=== PATIENT | male | born 1960 | race Caucasian/White ===

== ENCOUNTER → 2019-04-30 13:52 | Outpatient (CLI) | payer OTHER, SELFPAY | PROVIDERS: Family Provider Family Medicine; PCP Family Medicine; Visit Provider Family Medicine | DX: I10 Essential (primary) hypertension (principal); Z12.5 Encounter for screening for malignant neoplasm of prostate; Z80.42 Family history of malignant neoplasm of prostate | CPT/HCPCS: 36415 ==

== ENCOUNTER → 2019-06-08 16:36 | Outpatient (CLI) | payer OTHER, SELFPAY ==
--- NOTE | 2019-06-08 | IMM_PTH ---
PATIENT: ANGLE OCONNELL LOC: [facility] U#:[id number] AGE/SX: 64/M ROOM: RE06/08/[address]: Dr. Manny Cavazos MD : 1960 BED: DIS: SPEC #: [id number] RECD: 06/10/19 11:41 STATUS: REMIGIO REQ #: [id number] JEFRY: 06/08/19 00:[address]: Manny Cavazos DEPT: IMMUNOHISTOCHEMISTRY RECD BY: Shweta Mayorga ENTERED: 06/10/19 11:41 SP TYPE: IMMUNO OTHR DR: Dr. Shan Fernandez MD Tissues: F - PROSTATE LEFT Procedures: P40 (add) 34BE12 (initial) PHYSICIAN & INSTITUTION [place] [address] SPECIMEN INFORMATION: Tissue Source: F - Left prostate, base, core biopsy Clinical Info: Elevated PSA Specimen Number: [id number] CPT code: 85035, 43061 METHODOLOGY: Deparaffinized sections of prefer/formalin-fixed tissue or PAP/DQ stained slides are incubated with monoclonal/polyclonal antibodies/oligonucleotide probes. Localization is made via biotin free immunoperoxidase method. Appropriate controls are performed and reacted as expected. Results on target cell population are indicated in the following table: RESULTS: ANTIBODY / CLONE RESULT Block F 34BE12 (34BE12) negative P40 (BC28) negative These tests were developed and their performance characteristics determined by [facility]. They may not have been cleared or approved by the U.S. Food and Drug Administration. The FDA has determined that such clearance or approval is not necessary. INTERPRETATION: F. Left prostate, base, core biopsy: Adenocarcinoma. SJ:laya 06/11/19
--- NOTE | 2019-06-08 08:00 | PROSBIL_PTH ---
PATIENT: ANGLE OCONNELL LOC: [facility] U#:[id number] AGE/SX: 64/M ROOM: RE06/08/[address]: Dr. Manny Cavazos MD : 1960 BED: DIS: SPEC #: [id number] RECD: 06/08/19 16:16 STATUS: REMIGIO NAILA #: [id number] JEFRY: 06/08/19 08:[address]: Manny Cavazos DEPT: SURGICAL PATHOLOGY RECD BY: Nico Flanagan ENTERED: 06/09/19 10:03 SP TYPE: PROST BX GHASSAN DR: Dr. Shan Fernandez MD Tissues: A - PROSTATE RIGHT B - PROSTATE RIGHT C - PROSTATE RIGHT D - PROSTATE LEFT E - PROSTATE LEFT F - PROSTATE LEFT Procedures: PROSTATE BX HEADER OPERATION: Prostate biopsy PRE-OP DIAGNOSIS: Elevated PSA TISSUE SUBMITTED: A - Right apex, B - Right mid, C - Right base, D - Left apex, E - Left mid, F - Left base MICROSCOPIC DIAGNOSIS A. Right prostate, apex, core biopsy: Prostatic tissue, negative for malignancy. Focal mild chronic inflammation. B. Right prostate, mid, core biopsy: Prostatic tissue, negative for malignancy. Focal atrophy. C. Right prostate, base, core biopsy: Prostatic tissue, negative for malignancy. D. Left prostate, apex, core biopsy: Prostatic tissue, negative for malignancy. E. Left prostate, mid, core biopsy: Focal high-grade prostatic intraepithelial neoplasia (HGPIN). Focal mild chronic inflammation. F. Left prostate, base, core biopsy: Prostatic adenocarcinoma: [place] grade: 3+3=6 Number of cores involved: 1 of 2 Proportion of tissue involved: ~5% Perineural invasion: Not identified. Greatest tumor length: 0.1 cm See comment. SJ:rg 06/10/19 COMMENT F. Immunohistochemistry ([id number]) supports the above diagnosis. Case has been reviewed in consultation with Dr. Myrick who concurs with the above diagnosis. IDC:AM MICROSCOPIC DESCRIPTION Slides are reviewed. GROSS DESCRIPTION A - Received is one container designated prostate, right apex. The specimen consists of two elongated fragments of light mantilla-white soft tissue each measuring 0.8 cm in length and 0.1 cm in diameter. The specimen is totally submitted in one cassette. B - Received is one container designated prostate, right mid. The specimen consists of two elongated fragments of light mantilla-white soft tissue each measuring 1 cm in length and 0.1 cm in diameter. The specimen is totally submitted in one cassette. C - Received is one container designated prostate, right base. The specimen consists of two elongated fragments of light mantilla-white soft tissue each measuring 0.8 cm in length and 0.1 cm in diameter. The specimen is totally submitted in one cassette. D - Received is one container designated prostate, left apex. The specimen consists of two elongated fragments of light mantilla-white soft tissue each measuring 1 cm in length and 0.1 cm in diameter. The specimen is totally submitted in one cassette. E - Received is one container designated prostate, left mid. The specimen consists of two elongated fragments of light mantilla-white soft tissue each measuring 1 cm in length and 0.1 cm in diameter. The specimen is totally submitted in one cassette. F - Received is one container designated prostate, left base. The specimen consists of two elongated fragments of light mantilla-white soft tissue each measuring 0.8 cm in length and 0.1 cm in diameter. The specimen is totally submitted in one cassette. / AM:rg 06/09/19 TC:0 CPT: 15433 x6
== END ==
PROVIDERS: Family Provider Family Medicine; PCP Family Medicine; Referring Provider Urology; Visit Provider Urology
DX: R97.20 Elevated prostate specific antigen [PSA] (principal)
CPT/HCPCS: 88305; 88341; 88342; G0416

== ENCOUNTER 2019-07-28 05:44 | Day surgery (SDC) | payer OTHER, SELFPAY ==
[2019-07-20 10:26] VITALS: BP 125/99; PULSE 99; RESP 16; TEMP 37.3; O2SAT 96; BMI 25.6
--- NOTE | 2019-07-20 11:06 | SDCEKG_ITS ---
Test Reason : Blood Pressure : / mmHG Vent. Rate : 087 BPM Atrial Rate : 087 BPM P-R Int : 160 ms QRS Dur : 094 ms QT Int : 350 ms P-R-T Axes : 095 061 032 degrees QTc Int : 421 ms Normal sinus rhythm Normal ECG Confirmed by GARCIA JASMINE, RADHA ([id number]), food editor BERNARDINO GRERE ([id number]) on 07/26/2019 9:39:34 AM Referred By: Manny Cavazos Confirmed By:RADHA ZELAYA MD
[2019-07-23 13:50] LABS: ALB/GLOB Ratio 1.1 RATIO (0.9-2.4); AST(SGOT) 27 U/L (15-37); Alanine Aminotransfer ALT/SGPT 29 U/L (16-61); Albumin, Serum 3.8 g/dL (3.2-5.0); Alkaline Phosphatase 87 U/L (45-117); Anion Gap 6 (5-15); BUN 18 mg/dL (7-18); BUN/Creat Ratio 20.3 RATIO (10-20); Calcium,Total 8.8 mg/dL (8.5-10.1); Chloride 107 mmol/L (98-107); Creatinine, Serum 0.89 mg/dL (0.70-1.30); EST Glomerular Filtration Rate 93 mL/min (>60); Est Glom Filt Rate - Afr Amer 113 mL/min (>60); Estimated Creatinine Clearance 102.24 ml/min; Globulin 3.4 g/dL (2.2-4.2); Glucose 103 mg/dL (74-106); Protein, Total 7.2 g/dL (6.4-8.2); Sodium Level 142 mmol/L (136-145)
[2019-07-23 13:52] LABS: Hematocrit 46.8 % (40-54); Hemoglobin 15.4 g/dL (13.0-16.5); Mean Corp Hgb Conc 32.9 g/dL (32-36); Mean Corpuscular Hgb 29.2 pg (27.0-32.0); Mean Corpuscular Volume 88.8 fL (80-94); Mean Platelet Vol. 9.6 fl (6.2-12.0); Platelet Count 292 K/mm3 (150-450); RBC Distribution Width CV 12.4 % (11.6-14.6); RBC Distribution Width SD 40.8 fl (35.1-43.9); Red Blood Count 5.27 M/mm3 (4.6-6.2); White Blood Count 9.1 K/mm3 (4.4-11.0)
[2019-07-28] VITALS (12 sets, daily range): BP systolic 95–132; BP diastolic 60–91; PULSE 59–81; RESP 14–18; TEMP 36.4–37.2; O2SAT 91–100; BMI 25.6; BMI 25.7
--- NOTE | 2019-07-28 | IMM_PTH ---
PATIENT: ANGLE OCONNELL LOC: [facility] [place] [facility] [place][id number] AGE/SX: 58/M ROOM: RE07/28/[address]: Dr. Manny Cavazos MD : 1960 BED: DIS: 07/29/2019 SPEC #: [id number] RECD: 07/30/19 13:18 STATUS: REMIGIO REQ #: [id number] JEFRY: 07/28/19 00:[address]: Manny Cavazos DEPT: IMMUNOHISTOCHEMISTRY RECD BY: Shweta Mayorga ENTERED: 07/30/19 13:18 SP TYPE: IMMUNO OTHR DR: Dr. Shan Fernandez MD Tissues: C - Prostate, NOS Procedures: P40 (add) 34BE12 (initial) PHYSICIAN & INSTITUTION [place] [address] SPECIMEN INFORMATION: Tissue Source: C - Prostate, radical prostatectomy Clinical Info: Elevated PSA, malignant neoplasm Specimen Number: [id number] CPT code: 44140, 20461 METHODOLOGY: Deparaffinized sections of prefer/formalin-fixed tissue or PAP/DQ stained slides are incubated with monoclonal/polyclonal antibodies/oligonucleotide probes. Localization is made via biotin free immunoperoxidase method. Appropriate controls are performed and reacted as expected. Results on target cell population are indicated in the following table: RESULTS: ANTIBODY / CLONE RESULT Block C7 P40 (BC28) negative 34BE12 (34BE12) negative These tests were developed and their performance characteristics determined by [facility]. They may not have been cleared or approved by the U.S. Food and Drug Administration. The FDA has determined that such clearance or approval is not necessary. The above immunohistochemical/dualISH markers are ordered and reviewed by the Pathologist. INTERPRETATION: Theo Prostate, radical prostatectomy: Adenocarcinoma. ELI:laya 08/02/19
[2019-07-28] MEDS: Lactated Ringers 1,000 ML 100 ML IV ×3 (06:27→06:30)
[2019-07-28] MEDS: Cefazolin 2 GM in 0.9% Normal Saline 100 ML IV (07:29)
--- NOTE | 2019-07-28 07:30 | PROST_PTH ---
PATIENT: ANGLE OCONNELL LOC: [facility] [place] [facility] [place] U#:[id number] AGE/SX: 58/M ROOM: RE07/28/[address]: Dr. Manny Cavazos MD : 1960 BED: DIS: 07/29/2019 SPEC #: [id number] RECD: 07/28/19 16:05 STATUS: REMIGIO NAILA #: [id number] JEFRY: 07/28/19 07:[address]: Manny Cavazos DEPT: SURGICAL PATHOLOGY RECD BY: Jeffery Mckeon ENTERED: 07/29/19 07:59 SP TYPE: PROSTATE OTHR DR: Dr. Shan Fernandez MD Tissues: A - Lymph node, NOS B - Lymph node, NOS C - Prostate, NOS D - Prostate, NOS Procedures: Surgery Specimen Level IV Surgery Specimen Level V Surgery Specimen Level HEADER OPERATION: Lap robotic radical prostatectomy, lymph node dissection PRE-OP DIAGNOSIS: Elevated PSA, malignant neoplasm TISSUE SUBMITTED: A - Right pelvic lymph node, B - Left pelvic lymph node, C - Prostate, D - Fat over prostate MICROSCOPIC DIAGNOSIS A. Right pelvic lymph node, biopsy: Two out of two lymph nodes, negative for metastatic carcinoma. B. Left pelvic lymph node, biopsy: One lymph node, negative for metastatic carcinoma. C. Prostate, radical prostatectomy: Prostatic adenocarcinoma. See cancer summary below. D. Fat over prostate: One lymph node, negative for metastatic carcinoma. Adipose tissue, negative for carcinoma. SJ:laya 07/30/19 PROSTATE CANCER (RADICAL) SUMMARY: Procedure - radical prostatectomy Prostate size - 4 cm craniocaudally, 4.5 cm anterior-posteriorly and 4.6 cm transversely Prostate weight - 48 gm Lymph node sampling - pelvic lymph node dissection Histologic type - adenocarcinoma (acinar, not otherwise specified) Histologic grade (Ryan Pattern): Primary pattern - 3 Secondary pattern - 4 Tertiary pattern - not identified Total Ryan score - 7 Tumor Quantitation: Proportion (%) of prostate involved by tumor - <5% Tumor size - see comment Extraprostatic extension - not identified Seminal vesicle invasion - not identified Margins - The tumor is present focally at the apical margin. Treatment effect on carcinoma - no known presurgical therapy Lymph-Vascular invasion - not identified Perineural invasion - present, focal Regional lymph nodes: Number examined - 4 Number involved - 0 Distant metastasis - not applicable Additional pathologic findings - benign prostatic hyperplasia, glandular and stromal type. - Acute and chronic inflammation. - Focal high-grade prostatic intraepithelial neoplasia (HGPIN). PATHOLOGIC STAGE: pT2c pN0 Mx The above summary is in compliance with [employer] (CAP) Cancer Protocols Checklist and [place] Joint Committee on Cancer (AJCC), Staging Manual, 8th Ed. COMMENT C. Immunohistochemistry ([id number]) supports the above diagnosis. The tumor in the left lobe measures 0.5 x 0.3 cm, measured microscopically (involves slides 1, 6 & 8). The tumor in the right lobe measures 0.5 x 0.3 cm, measured microscopically (present in slides 7, 9 &?15). Please make reference to previous specimen ([id number]) left prostate, base, core biopsy with diagnosis of prostatic adenocarcinoma. Case has been reviewed in consultation with Dr. Myrick who concurs with the above diagnosis. IDC:AM MICROSCOPIC DESCRIPTION Slides are reviewed. GROSS DESCRIPTION A - Received in fixative is one container labeled with the patient's name and designated right pelvic lymph node. The specimen consists of an irregular fragment of mantilla-yellow fibrofatty tissue measuring 2.5 x 2 x 1 cm. Dissection reveals two mantilla nodules ranging in size from 1 to 1.7 cm in greatest dimension. The nodules are submitted in their entirety in one cassette. B - Received in fixative is one container labeled with the patient's name and designated left pelvic lymph node. The specimen consists of an irregular fragment of mantilla-yellow fibrofatty tissue measuring 3.5 x 1.5 x 1 cm. Dissection reveals a single mantilla nodule measuring 2 x 0.7 x 0.5 cm. This nodule is bisected and submitted in its entirety in one cassette. C - Received in fixative is one container labeled with the patient's name and designated prostate. The specimen consists of a prostate including seminal vesicles and vas deferens. The prostate measures 4.6 cm transversely, 4 cm craniocaudally and 4.5 cm anterior-posteriorly. On palpation, no gross nodules are identified. The gland weighs 48 gm. The specimen is differentially inked as follows: anterior - red, posterior - black, right half - blue and left half - green. The gland is cut from apex of gland to base of gland at approximately 4-5 mm sections. Serial sections do not reveal distinct mass lesions. Car Record Clerk sections are submitted in 20 cassettes as follows: 1 - apical shaved margin (distal urethral margin), 2 - proximal margin (bladder shave), 3 - right and left seminal vesicle, 4 - most basal section of prostate, 5-8 - apex of gland, 9-14 - mid portion of gland, 15-20 - basal portion of gland. D - Received in fixative is one container labeled with the patient's name and designated fat over prostate. The specimen consists of an irregular fragment of yellow fatty tissue measuring 4.5 x 3 x 1 cm. Sections do not reveal nodularities or mass lesions. Car Record Clerk sections are submitted in one cassette. / AM:laya 07/29/19 TC:0 CPT: 32374, 26106, 26672 x2
--- NOTE | 2019-07-28 07:35 | PCM.DC ---
- Discharge Diagnoses Current Active Problems: Prostate Cancer Reason(s) for Visit for Discharge Instructions: Robotic Prostatectomy You will use the following diet at home:: Regular, Clear liquid Your food should be the consistency of: Regular Discharge Activity: May not drive while taking narcotic pain medications., May Shower Return to work on:: 09/01/19 Call your doctor if your incision/area has: Continuous Slow Oozing, Sudden Increased Bleeding, Increased Pain/ Swelling, Increased Redness, Foul Smelling Discharge, Swelling at the incision site Call your doctor if you observe: Fever of 101 or Higher, Inability to have a bowel movement, Uncontrolled pain Suture Line Care: Avoid Pulling/Pushing, Avoid Pinching/Bending Catheter: Olivera to leg bag, Olivera to large bag Drain: [place] Instructions: Radical Prostatectomy Allergies/Adverse Reactions: Allergies No Known Allergies Allergy (Verified 07/20/19 10:22) Medications to take at Discharge Aspirin E.C. [Ecotrin] 81 mg PO DAILY@0800 07/20/19 Lisinopril/Hydrochlorothiazide [Lisinopril-Hctz 20-12.5 mg Tab] 1 ea PO DAILY 07/20/19 Ciprofloxacin [Cipro] 500 mg PO BID #20 tab 07/28/19 Docusate Sodium [Colace] 100 mg PO BID #20 cap 07/28/19 Hydrocodone/Acetaminophen [[place] 5-325 Tablet] 1 ea PO Q4H PRN PRN 5 Days #14 tab 07/28/19 The following prescriptions were given: Ciprofloxacin [Cipro] 500 mg PO BID #20 tab Prescription Printed Docusate Sodium [Colace] 100 mg PO BID #20 cap Prescription Printed Hydrocodone/Acetaminophen [[place] 5-325 Tablet] 1 ea PO Q4H PRN PRN 5 Days #14 tab PRN Reason: Pain Score 1-10/10 Prescription Printed Primary Care Physician: Shan Fernandez MD [Primary Care Provider] - Test Results: Test results from this visit will be discussed in further detail at your follow-up appointment, if applicable. Please Follow Up With: Manny Cavazos MD When: Call for an appt in 10 days Proposed Discharge Date: 07/29/19
[2019-07-28] MEDS: Bupivacaine Mpf 0.5% 30 ML VIAL (11:00)
--- NOTE | 2019-07-28 11:09 | OP.PCM_ITS ---
Report of Operation Date of Procedure: 07/28/19 Pre-Operative Diagnosis: Prostate cancer Post-Operative Diagnosis: Same Surgery/Procedure Performed:: Laparoscopic robotic assisted radical prostatectomy with bilateral nerve sparing and bilateral lymph node dissection Description of Surgical Findings:: 58-year-old male taken back to the operating room after smooth induction of anesthesia he was placed supine on the table, the abdomen shaved prepped and draped in usual sterile fashion, made a midline incision in the umbilicus dissected through the skin layer and then used a Veress needle to enter the peritoneal cavity insufflated the peritoneal cavity CO2 gas docked the camera port right and left arm port and fourth arm port and placed the suction port and the residential real estate assistant suction port. We then docked the robot and proceeded the dissection I first identified the posterior aspect of the bladder and the prostate seminal vesicles opened up the peritoneum over the seminal vesicles and vas deferens dissected out the seminal vesicles and vas deferens without using any electrocautery just bipolar minimal amount I then went underneath the prostate identified the non-BAs fascia was able to sweep tenotomies fascia off the bottom of the prostate all the way to the apex. I then pulled out of the pelvis drop the bladder created the space of Retzius pulled the bladder on traction. We then went to the lymph nodes on the right lateral wall dissected the lymph nodes of the right lateral wall the operators first the hand router operator nerve was identified. We used the clips to ligate all the blood vessels as we remove the lymph nodes in the right obturator space. We then went to the left side identified the anatomy remove the lymph nodes in the left side and the hand router operator space. After the lymph nodes were sent off then incised the endopelvic fascia in the right and left side of the prostate, incised the puboprostatic ligaments, placed a stitch in the dorsal vein, I then pulled back to the junction between the bladder and prostate and dissected down between the bladder and prostate dissecting the bladder off the prostate encountered a very large protruding BPH lobes protruding into the bladder made this dissection a little more difficult had a dissect around these eventually identified the right and left ureteral orifice and then dissected the BPH protruding to the tissue off the prostate and bladder and then got posteriorly and then dissected posteriorly to separate the bladder from the prostate in the posterior fashion down to got down to the vas deferens and seminal vesicles. We then went to the right side to put traction t he prostate I then incised the endopelvic fascia in the right side of the prostate freeing up the neurovascular bundle this was freed up and stayed right on the capsule of the prostate and freed up the bundle all the way off the capsule prostate coming back to the pedicle the pedicles then taken with clips and then I went underneath the prostate and freed up the neurovascular bundle on the right side all the way to the apex this is a complete perfect nerve sparing on the right side. Then went to the left side incised the endopelvic fascia over the proximal to the left side and then freed up the nerve bundle on the left side sweeping off the prostate came back to the pedicle of the left side and then swept off the neurovascular bundle in the left side all the way to the apex again this came off very nicely with no damage to the neurovascular bundles identified. I then transected through the dorsal vein complex there is no bleeding I then transected through the urethra had a nice long stump. We then the access remove the prostate put an Endo Catch bag. I then performed the anastomosis between the urethral stump and the bladder. This was done over catheter after the anastomosis completed we then flushed and filled the bladder up there was no leakage of the perfect anastomosis we then filled the balloon with 10 cc pulled back to the bladder neck irrigated catheter there was no leakage we then undocked the robot extracted the prostate to the supraumbilical incision and closed the air seal port with a Sal Soto stitch all the subtalar stitches were closed with stitches and the patient's anesthetic is currently being reversed it was a very nice dissection entire prostate was removed and no violation identified and good nerve sparing in both right and left side. Type of Anesthesia:: General Drains: barraza 20 fr - Admit VTE Documentation VTE Present on Admission: No VTE Mechan Device Prophylaxis: SCD's
[2019-07-28] MEDS: Ketorolac 15 MG/ML Vial IV ×2 (13:27→18:01)
[2019-07-28] MEDS: 0.9% Saline Lock 10 ML Syringe IV (18:01)
[2019-07-28] MEDS: Ciprofloxacin 500 MG Tablet PO (21:26)
[2019-07-28] MEDS: Docusate Sodium 100 MG Capsule PO (21:26)
[2019-07-29] MEDS: Ketorolac 15 MG/ML Vial IV ×2 (00:05→06:36)
[2019-07-29] MEDS: 0.9% Saline Lock 10 ML Syringe IV (00:05)
[2019-07-29 02:46] VITALS: BP 111/69; PULSE 80; RESP 18; TEMP 37.2; O2SAT 95
[2019-07-29] MEDS: Enoxaparin 40 MG/0.4 ML Syringe SC (06:35)
[2019-07-29 07:07] LABS: Hemoglobin 12.7 g/dL (13.0-16.5); Mean Corp Hgb Conc 33.4 g/dL (32-36); Mean Corpuscular Hgb 29.2 pg (27.0-32.0); Mean Corpuscular Volume 87.4 fL (80-94); Platelet Count 229 K/mm3 (150-450); RBC Distribution Width SD 38.7 fl (35.1-43.9); Red Blood Count 4.35 M/mm3 (4.6-6.2); White Blood Count 11.2 K/mm3 (4.4-11.0)
[2019-07-29 07:21] LABS: Anion Gap 8 (5-15); BUN 13 mg/dL (7-18); BUN/Creat Ratio 13.7 RATIO (10-20); Calcium,Total 7.8 mg/dL (8.5-10.1); Chloride 100 mmol/L (98-107); Creatinine, Serum 0.95 mg/dL (0.70-1.30); EST Glomerular Filtration Rate 87 mL/min (>60); Est Glom Filt Rate - Afr Amer 105 mL/min (>60); Estimated Creatinine Clearance 93.03 ml/min; Glucose 115 mg/dL (74-106); Potassium 3.6 mmol/L (3.5-5.1); Sodium Level 136 mmol/L (136-145)
[2019-07-29 07:32] VITALS: BP 122/78; PULSE 82; RESP 18; TEMP 37.1; O2SAT 99
--- NOTE | 2019-07-29 07:47 | PCM.PN.BLA ---
Progress Note Postoperative day #1 status post radical prostatectomy patient is doing well plan to send him home today with a catheter. Abdomen soft and benign incisions are clean and the urine is nice and clear STROKE Vital Signs/Narrative: Vital Signs Temp Pulse Resp BP Pulse Ox 07/29/19 07:32 98.7 F 82 18 122/78 H 99
== END 2019-07-29 09:26 | disposition home or self-care (01) ==
LOC: SDC 05:51 → AC 05:51 → MS2 07-29 01:26
PROVIDERS: Family Provider Family Medicine; PCP Family Medicine; Referring Provider Urology; Visit Provider Urology
PROC: 0VT04ZZ Resection of Prostate, Percutaneous Endoscopic Approach (ICD-10-PCS; CPT 55866; principal; 2019-07-28 07:10)
DX: C61 Malignant neoplasm of prostate (principal); R97.20 Elevated prostate specific antigen [PSA]; I10 Essential (primary) hypertension; Z79.82 Long term (current) use of aspirin; Z79.899 Other long term (current) drug therapy; Z80.42 Family history of malignant neoplasm of prostate
CPT/HCPCS: 38571; 55866; 36415; 80048; 80053; 85027; 86850; 86900; 86901; 88305; 88307; 88309; 88341; 88342; 93005; 99251; J7120; A4216; G0463; J2405

== ENCOUNTER → 2019-09-23 13:23 | Outpatient (CLI) | payer OTHER, SELFPAY ==
[2019-07-28 12:52] VITALS: BMI 25.7
[2019-09-23 14:14] LABS: PSA,Total- Diagnostic < 0.01 ng/mL (0.0-4.0)
== END ==
PROVIDERS: Family Provider Family Medicine; PCP Family Medicine; Referring Provider Urology; Visit Provider Urology
DX: C61 Malignant neoplasm of prostate (principal)
CPT/HCPCS: 36415; 84153

== ENCOUNTER → 2020-01-20 09:01 | Outpatient (CLI) | payer OTHER, SELFPAY ==
[2019-07-28 12:52] VITALS: BMI 25.7
[2020-01-20 09:52] LABS: PSA,Total- Diagnostic < 0.01 ng/mL (0.0-4.0)
== END ==
PROVIDERS: PCP Family Medicine; Referring Provider Urology; Visit Provider Urology
DX: C61 Malignant neoplasm of prostate (principal)
CPT/HCPCS: 36415; 84153

== ENCOUNTER → 2020-10-18 14:13 | Outpatient (CLI) | payer SELFPAY ==
[2019-07-28 12:52] VITALS: BMI 25.7
--- NOTE | 2020-10-18 14:19 | CT_ITS ---
STUDY: CT MAXILLOFACIAL SINUSES REASON FOR EXAM: Male, 60 years old. SINUSITIS RADIATION DOSAGE (If Supplied By Facility): CTDIvol = ( 33.45 ) mGy, DLP = ( 834.91 ) mGycm TECHNIQUE: The patient was scanned in a multi detector CT scanner. High resolution axial imaging was performed without the administration of intravenous contrast material. Sagittal and coronal images were reconstructed. Individualized dose optimization techniques were used for this CT. COMPARISON: None. FINDINGS: FRONTAL SINUSES: Partial opacification of the left sphenoid sinus. ETHMOIDAL SINUSES: There is soft tissue density and opacification of the ethmoid sinuses bilaterally worse on the left side. There is thinning of the medial wall of the left maxillary sinus. The nasal fossa is filled with soft tissue density on the left side suggestive of polyposis. MAXILLARY SINUSES: There is also opacification of the left maxillary sinus. There is obliteration of the left maxillary infundibulum. Mucosal thickening of the right maxillary sinus. SPHENOIDAL SINUSES: Mucosal thickening of the sphenoid sinus worse on the left side. The visualized bilateral orbital contents are normal. CT/Sinus/Facial Bone IMPRESSION: BARAJAS sinusitis. This is worse on the left side. Electronically Signed: Irvin Martinez MD at 14:49 EST , Service support ,
== END ==
PROVIDERS: PCP Family Medicine; Referring Provider Otolaryngology; Visit Provider Otolaryngology
DX: J32.8 Other chronic sinusitis (principal)
CPT/HCPCS: 70486

== ENCOUNTER → 2020-11-15 14:05 | Outpatient (CLI) | payer OTHER, SELFPAY ==
[2019-07-28 12:52] VITALS: BMI 25.7
== END ==
PROVIDERS: PCP Family Medicine; Referring Provider Otolaryngology; Visit Provider Otolaryngology
DX: Z11.59 Encounter for screening for other viral diseases (principal)
CPT/HCPCS: 87635; C9803; U0005; U0003

== ENCOUNTER 2021-11-05 11:33 | Outpatient (CLI) | payer OTHER, SELFPAY ==
[2021-11-05 15:42] LABS: PSA,Total- Diagnostic < 0.01 ng/mL (0.0-4.0)
== END 2021-11-05 23:59 | disposition home or self-care (01) ==
PROVIDERS: PCP Family Medicine; Referring Provider Family Medicine; Visit Provider Family Medicine
DX: C61 Malignant neoplasm of prostate (principal)
CPT/HCPCS: 36415; 84153

== ENCOUNTER 2022-07-03 10:46 | Day surgery (SDC) | payer OTHER, SELFPAY ==
--- NOTE | 2022-07-03 | EGD_PTH ---
PATIENT: ANGLE OCONNELL LOC: [facility] U#:[id number] AGE/SX: 61/M ROOM: RE07/03/[address]: Dr. Juan Mason MD : 1960 BED: DIS: 07/03/2022 SPEC #: [id number] RECD: 07/03/22 13:27 STATUS: REMIGIO OLVERALelo #: [id number] JEFRY: 07/03/22 00:[address]: Juan Mason DEPT: SURGICAL PATHOLOGY RECD BY: Collin Hankins ENTERED: 07/03/22 13:28 SP TYPE: EGD BIOPSY OT DR: Dr. Shan Fernandez MD Tissues: Esophageal mucous membrane Procedures: Surgery Specimen Level IV HEADER OPERATION: EGD ([facility] [place] biopsy PRE-OP DIAGNOSIS: Dysphagia, rule out eosinophilic esophagitis TISSUE SUBMITTED: Mid esophagus biopsy MICROSCOPIC DIAGNOSIS Mid esophagus, biopsy: Fragments of squamous mucosa with chronic inflammation and changes suggestive of eosinophilic esophagitis. See comment. SJ:laya 07/04/2022 COMMENT Focal increased number of eosinophils (10 to 15 per high power field) suggestive of eosinophilic esophagitis are noted. Correlation with clinical, endoscopic findings and appropriate follow up are necessary. MICROSCOPIC DESCRIPTION Slides are reviewed. GROSS DESCRIPTION Received in fixative is one container labeled with the patient's name and designated mid esophagus biopsy. The specimen consists of multiple irregular fragments of light mantilla soft tissue that in aggregate measure 1 x 0.4 x 0.1 cm. The specimen is totally submitted in one cassette. / ELI:laya 07/03/2022 TC:3 CPT: 60616
--- NOTE | 2022-07-03 11:10 | HP.PCM_ITS ---
History and Physical Date of Admission: 07/03/22 Intake Vital Signs ? 06/25/2209:17 Height 6 ft 1 in Weight: 199 lb BMI 26.2 BP 162/69 H Blood Pressure LocationB Rt brachial Position Sitting Respiration 18 Pulse 64 Pulse Source Monitor Pulse Oximetry (%) 95 Oxygen Delivery Method room air Intake Visit Reasons:?PROGRESSIVE DYSPHAGIA Chief Complaint: Progressive dysphagia Civil Engineering Project Manager Required: No Is patient in pain?: No Allergies No Known Allergies Allergy (Verified 06/25/22 09:18) Medications aspirin 81 mg tablet,delayed release 81 mg PO DAILY@0800 07/20/19 [History Confirmed 06/25/22] lisinopril 20 mg-hydrochlorothiazide 12.5 mg tablet 1 ea PO DAILY 07/20/19 [History Confirmed 06/25/22] omeprazole 20 mg tablet,delayed release 20 mg PO DAILY #60 tabs 06/25/22 [Rx Confirmed 06/25/22] PFSH Medical History?(Updated 06/25/22 @ 09:15 by Fariba Sanchez) Dysphagia Hypertension Surgical History?(Updated 06/25/22 @ 09:16 by Fariba Sanchez) History of prostatectomy Family History?(Updated 06/25/22 @ 09:16 by Fariba Sanchez) Father Hypertension Cancer ?? ? Prostate ?? ? Social History?(Updated 06/25/22 @ 09:16 by Fariba Sanchez) Smoking Status:? Never smoker alcohol intake:? current alcohol intake frequency: a few times a month substance use type:? does not use HPI HPI HPI: 61-year-old male here with dysphagia.? He reports that it has been getting worse over the course of a year.? He says food especially bread is getting stuck in his mid chest.? He reports no GERD or reflux symptoms. ROS General General: No weight change, appetite, fatigue, colon cancer, breast cancer or weakness HEENT HEENT: Yes difficulty swallowing; No eye injury, eye surgery, swollen glands or hoarseness Additional Details: Food lodges at breast bone area and immediately has hiccups Endo Endocrine: No thyroid disease, diabetes mellitus, thyroid cancer, Hair loss, heat intolerance or cold intolerance Skin Skin: No rash or changing moles Breast Breast: No left breast lump, right breast lump, nipple discharge, breast pain, abnormal mammogram, abnormal US or breast enlargement Musc Musculoskeletal: Yes arthritis; No back problems, rheumatoid arthritis, gout or joint pain Cardio Cardiovascular: Yes high blood pressure; No murmur, pacemaker, heart disease, atrial fibrillation, heart attack, heart stent, palpitations, shortness of breat with exertion or chest pain Psych Psychiatric: No depression, anxiety or hearing voices Resp Respiratory: No shortness of breath, No sleep apnea, No cough, No COPD, No asthma, No emphysema and No wheezing Gastro Gastrointestinal: No abdominal pain, No nausea or vomiting, No diarrhea, No constipation, No blood in stool, No acid reflux, No hemorrhoids, No ulcers, No gallbladder problem and No black,tarry stools [place] Hematologic: No blood thinners, No blood disorders, No bleeding, No anemia and No blood clots Additional Details: Takes daily baby aspirin Neuro Neurologic: No system reviewed and no additional complaints, except as documented, No as per HPI, No abnormal gait, No abnormal hearing, No abnormal movements, No abnormal speech, No behavioral changes, No burning sensations, No confusion, No convulsions, No disequilibrium, No dizziness, No localized weakness, No frequent falls, No headache(s), No lack of coordination, No loss of vision, No memory loss, No numbness, No other visual disturbances, No radicular pain, No restless legs, No sensory deficit, No syncope, No tingling, No tremor(s), No weakness and No other Exam Const General: cooperative Orientation: alert and oriented x3 HENMT Head: normal to inspection Neck Neck: normal visual inspection and full ROM Chest Chest palpation & inspection: normal inspection of the chest Resp Effort & Inspection: normal respiratory effort Auscultation: clear to auscultation bilaterally Cardio Rate: regular rate Rhythm: regular rhythm GI Inspection: non-distended Palpation: soft and nontender Skin General: no rashes or lesions noted Neuro General: patient alert and patient oriented x3 Extrem General: full ROM Psych Appearance: grossly normal Mental Status: mental status grossly normal Assessment and Plan Assessment and Plan (1) Dysphagia: ?Status:?Acute ?Plan: Patient is having dysphagia and I recommended EGD with possible dilation.? I discussed this with him in detail.? I discussed the increased risks of bleeding or perforation.? He will stop his aspirin and turmeric 5 days before the procedure.? I also started him on a PPI in the meantime. I explained endoscopy in detail to the patient.? I explained the risks including but not limited to stroke or heart attack with anesthesia, perforation of the GI tract, bleeding, infection.? I explained that any of these could necessitate further emergency surgery.? The patient understands and all questions were answered sufficiently.? The patient wishes to proceed with procedure. Juan Mason MD Pager: [facility] [address] [place] [address] [address] [place] [phone] Office: I have seen and examined the patient and there are no changes
[2022-07-03 11:13] VITALS: BP 143/96; PULSE 54; RESP 16; TEMP 37.1; O2SAT 98; BMI 27.7
[2022-07-03] MEDS: Lactated Ringers 1,000 ML 15 ML IV (11:20)
[2022-07-03 11:29] VITALS: BP 122/85; BP 143/96; PULSE 70; RESP 16; TEMP 37.2; O2SAT 97
[2022-07-03 11:35] VITALS: BP 126/85; BP 143/96; PULSE 67; RESP 16; O2SAT 94
--- NOTE | 2022-07-03 11:35 | OP.EGD_ITS ---
Patient Name: Jose Russell Procedure Date: 07/03/2022 11:07 AM Date of : 1960 Age: 61 Procedure: Upper GI endoscopy Indications: Dysphagia Providers: Juan Mason MD Medicines: Monitored Anesthesia Care Patient Profile: This is a 61 year old male. Refer to note in patient chart for documentation of history and physical. Complications: No immediate complications. Procedure: Pre-Anesthesia Assessment: - Prior to the procedure, a History and Physical was performed, and patient medications and allergies were reviewed. The patient's tolerance of previous anesthesia was also reviewed. The risks and benefits of the procedure and the sedation options and risks were discussed with the patient. All questions were answered, and informed consent was obtained. Prior Anticoagulants: The patient has taken no previous anticoagulant or antiplatelet agents. After reviewing the risks and benefits, the patient was deemed in satisfactory condition to undergo the procedure. After obtaining informed consent, the endoscope was passed under direct vision. Throughout the procedure, the patient's blood pressure, pulse, and oxygen saturations were monitored continuously. The gastroscope was introduced through the mouth, and advanced to the fourth part of duodenum. The upper GI endoscopy was accomplished without difficulty. The patient tolerated the procedure well. Scope In: 11:20:22 AM Scope Out: 11:23:58 AM Total Procedure Duration Time 0 hours 3 minutes 36 seconds Findings: The esophagus was normal. The stomach was normal. The examined duodenum was normal. Biopsies were taken with a cold forceps in the mid esophagus for histology. Impression: - Normal esophagus. - Normal stomach. - Normal examined duodenum. - Biopsies were taken with a cold forceps for histology in the mid esophagus. Recommendation: - Discharge patient to home. - Resume previous diet. - Continue present medications. - Await pathology results. Procedure Code(s): --- Professional --- 04849, Esophagogastroduodenoscopy, flexible, transoral; with biopsy, single or multiple Diagnosis Code(s): --- Professional --- R13.10, Dysphagia, unspecified CPT copyright 2017 [employer]. All rights reserved. The codes documented in this report are preliminary and upon housekeeper cleaning cooking review may be revised to meet current compliance requirements. Juan Mason MD 07/03/2022 11:35:34 AM This report has been signed electronically. Number of Addenda: 0 Note Initiated On: 07/03/2022 11:07 AM
--- NOTE | 2022-07-03 11:35 | OP.CCLET_ITS ---
07/03/2022 Shan Fernandez Re : Upper GI endoscopy procedure for Jose [place] Dear Rebecca This procedure was performed on Sunday, July 03, 2022. My impressions and recommendations are as follows: Impressions : - Normal esophagus. - Normal stomach. - Normal examined duodenum. - Biopsies were taken with a cold forceps for histology in the mid esophagus. Recommendations : - Discharge patient to home. - Resume previous diet. - Continue present medications. - Await pathology results. My findings are described in the full procedure note, which is enclosed. If I can be of further assistance, please feel free to contact me at Doctor phone number(s): , Work: . Sincerely, Juan Mason MD 07/03/2022 11:35:34 AM This report has been signed electronically.
[2022-07-03 11:39] VITALS: BP 123/87; BP 143/96; PULSE 61; RESP 16; O2SAT 96
[2022-07-03 11:45] VITALS: BP 134/84; BP 143/96; PULSE 56; RESP 16; TEMP 36.8; O2SAT 99
[2022-07-03 12:08] VITALS: BP 143/96
== END 2022-07-03 12:12 | disposition home or self-care (01) ==
LOC: EN 10:48 → AC 10:52
PROVIDERS: PCP Family Medicine; Referring Provider Family Medicine; Visit Provider Surgery
PROC: 0DJ08ZZ Inspection of Upper Intestinal Tract, Via Natural or Artificial Opening Endoscopic (ICD-10-PCS; CPT 43235; principal; 2022-07-03 11:55)
DX: K20.0 Eosinophilic esophagitis (principal); I10 Essential (primary) hypertension; Z79.899 Other long term (current) drug therapy; Z79.82 Long term (current) use of aspirin
CPT/HCPCS: 43239; 88305; J7120

== ENCOUNTER → 2023-09-25 | Outpatient (CLI) | payer OTHER, SELFPAY ==
--- OUTSIDE RECORDS SUMMARY | 2023-09-25 17:12 | XMS RPT_ITS | CCD ---
Author Name Unknown Address [address] [place] [address] Organization [facility] Results Test Name Value Interpretation Reference Range Facil ity Summary Purpose Family History No Family History Records Found Advance Directives No Advanced Directives Records Found Additional Source Comments (unrecognized sect ion and content) No Status Records Found INFORMATION SOURCE (unrecogn ized section and content) FOR RECORDS PERTAINING TO PATIENTS WHO ARE OR HAVE BEEN ENROLLED IN A CHEMICAL DEPENDENCY/SUBSTANCEABUSE PROGRAM, SOME INFORMATION MAY BE OMITTED. This clinical summary was aggregated from multiple sources. Caution should be exercised in using it in the provision of clinical care. This summary normalizes information from multiple sources, and as a consequence, information in this document may materially change the coding, format and clinical context of patient data. In addition, data may be omitted in some cases. CLINICAL DECISIONS SHOULD BE BASED ON THE PRIMARY CLINICAL RECORDS. [facility]. provides no warranty or guarantee of the accuracy or completeness of information in this document.
[2023-09-25 18:34] LABS: PSA,Total- Diagnostic < 0.01 ng/mL (0.0-4.0)
== END | disposition home or self-care (01) ==
LOC: BFHLAB 13:59
PROVIDERS: PCP Nurse Practitioner Family; Visit Provider Nurse Practitioner Family
DX: C61 Malignant neoplasm of prostate (principal)
CPT/HCPCS: 84153

== ENCOUNTER 2023-12-19 07:29 | Day surgery (SDC) | payer SELFPAY ==
[2023-12-19 07:51] VITALS: BP 131/82; PULSE 82; RESP 16; O2SAT 97; BMI 26.1
[2023-12-19] MEDS: Lactated Ringers 1,000 ML 15 ML IV (07:54)
--- NOTE | 2023-12-19 09:05 | PCM.HP.BLA ---
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 Is patient in pain?: No Allergies No Known Allergies Allergy (Verified 10/30/23 08:03) Medications aspirin 81 mg tablet,delayed release 81 mg PO DAILY@0800 07/20/19 [History Confirmed 10/30/23] lisinopril 20 mg-hydrochlorothiazide 12.5 mg tablet 1 ea PO DAILY 07/20/19 [History Confirmed 10/30/23] omeprazole 20 mg tablet,delayed release 20 mg PO DAILY #60 tabs 06/25/22 [Rx Confirmed 10/30/23] PFSH Medical History (Updated 10/30/23 @ 08:02 by Shikha Antony LPN) Dysphagia Hypertension Prostate CA Surgical History History of prostatectomy Family History Father Hypertension Cancer Prostate Social History Smoking Status: Never smoker alcohol intake: current alcohol intake frequency: a few times a month substance use type: does not use HPI HPI HPI: Patient is a 63-year-old male here to discuss colonoscopy. He had a positive Cologuard test. He has never had a colonoscopy in the past. I did an EGD about a year ago which was normal. He denies any abdominal pain or blood in his stool. He says he has family history of colon cancer in his grandfather and multiple polyps in his father. ROS General General: No weight change, appetite, fatigue, colon cancer or breast cancer HEENT HEENT: No difficulty swallowing, eye injury, eye surgery, swollen glands or hoarseness Endo Endocrine: No thyroid disease, diabetes mellitus, thyroid cancer, Hair loss, heat intolerance or cold intolerance Skin Skin: No rash or changing moles Musc Musculoskeletal: No back problems, arthritis, rheumatoid arthritis, gout or joint pain Cardio Cardiovascular: Yes high blood pressure; No murmur, pacemaker, heart disease, atrial fibrillation, heart attack, heart stent, palpitations, shortness of breat with exertion or chest pain Psych Psychiatric: No depression, anxiety or hearing voices Resp Respiratory: No shortness of breath, No sleep apnea, No cough, No COPD, No asthma, No emphysema and No wheezing Gastro Gastrointestinal: No abdominal pain, No nausea or vomiting, No diarrhea, No constipation, No blood in stool, No acid reflux, No hemorrhoids, No ulcers, No gallbladder problem and No black,tarry stools [place] Hematologic: Yes blood thinners, No blood disorders, No bleeding, No anemia and No blood clots Additional Details: 81 mg aspirin Neuro Neurologic: No numbness and No tingling Exam Const General: cooperative Orientation: alert and oriented x3 HENMT Head: normal to inspection Neck Neck: normal visual inspection and full ROM Chest Chest palpation & inspection: normal inspection of the chest Resp Effort & Inspection: normal respiratory effort Auscultation: clear to auscultation bilaterally Cardio Rate: regular rate Rhythm: regular rhythm GI Inspection: non-distended Palpation: soft and nontender Skin General: no rashes or lesions noted Neuro General: patient alert and patient oriented x3 Extrem General: full ROM Psych Appearance: grossly normal Mental Status: mental status grossly normal Assessment and Plan Assessment and Plan (1) Positive colorectal cancer screening using Cologuard test: Status: Acute Plan: I explained endoscopy in detail to the patient. I explained the risks including but not limited to stroke or heart attack with anesthesia, perforation of the GI tract, bleeding, infection. I explained that any of these could necessitate further emergency surgery. The patient understands and all questions were answered sufficiently. The patient wishes to proceed with procedure. Juan Mason MD Pager: [facility] [address] [place] [address], [address] [place] [address] Office: I have examined the patient and the H&P has been reviewed. There are no clinical changes since date of exam.
--- NOTE | 2023-12-19 09:33 | OP.COLON_ITS ---
Patient Name: Jose [place] Procedure Date: 12/19/2023 9:08 AM Date of : 1960 Age: 63 Procedure: Colonoscopy Indications: Positive Cologuard test Providers: Juan Mason MD Medicines: Propofol per Anesthesia Patient Profile: This is a 63 year old male. Refer to note in patient chart for documentation of history and physical. Last Colonoscopy: none. The patient's first colonoscopy is today. Complications: No immediate complications. Procedure: Pre-Anesthesia Assessment: - Prior to the procedure, a History and Physical was performed, and patient medications and allergies were reviewed. The patient's tolerance of previous anesthesia was also reviewed. The risks and benefits of the procedure and the sedation options and risks were discussed with the patient. All questions were answered, and informed consent was obtained. Prior Anticoagulants: The patient has taken no anticoagulant or antiplatelet agents. After reviewing the risks and benefits, the patient was deemed in satisfactory condition to undergo the procedure. After I obtained informed consent, the scope was passed under direct vision. Throughout the procedure, the patient's blood pressure, pulse, and oxygen saturations were monitored continuously. The Colonoscope was introduced through the anus and advanced to the cecum, identified by appendiceal orifice and ileocecal valve. The colonoscopy was performed without difficulty. The patient tolerated the procedure well. The quality of the bowel preparation was good. The ileocecal valve, appendiceal orifice, and rectum were photographed. Scope In: 9:16:45 AM Scope Withdrawal Time 0 hours 6 minutes 18 seconds Scope Out: 9:28:24 AM Total Procedure Duration Time 0 hours 11 minutes 39 seconds Findings: The entire examined colon appeared normal on direct and retroflexion views. Impression: - The entire examined colon is normal on direct and retroflexion views. - No specimens collected. Recommendation: - Discharge patient to home. - Resume previous diet. - Continue present medications. - Repeat colonoscopy in 10 years for screening purposes. Procedure Code(s): --- Professional --- 94090, Colonoscopy, flexible; diagnostic, including collection of specimen(s) by brushing or washing, when performed (separate procedure) Diagnosis Code(s): --- Professional --- R19.5, Other fecal abnormalities CPT copyright 2021 [employer]. All rights reserved. The codes documented in this report are preliminary and upon sample taker operator review may be revised to meet current compliance requirements. Juan Mason MD 12/19/2023 9:32:56 AM This report has been signed electronically. Number of Addenda: 0 Note Initiated On: 12/19/2023 9:08 AM
--- NOTE | 2023-12-19 09:33 | OP.CCLET_ITS ---
12/19/2023 Brodie Barrios Re : Colonoscopy procedure for Jose [place] Dear Angelo This procedure was performed on Tuesday, December 19, 2023. My impressions and recommendations are as follows: Impressions : - The entire examined colon is normal on direct and retroflexion views. - No specimens collected. Recommendations : - Discharge patient to home. - Resume previous diet. - Continue present medications. - Repeat colonoscopy in 10 years for screening purposes. My findings are described in the full procedure note, which is enclosed. If I can be of further assistance, please feel free to contact me at Doctor phone number(s): , Work: . Sincerely, Juan Mason MD 12/19/2023 9:32:56 AM This report has been signed electronically.
[2023-12-19 09:35] VITALS: BP 101/76; PULSE 74; RESP 16; TEMP 36.2; O2SAT 95
[2023-12-19 09:40] VITALS: BP 110/83; PULSE 73; RESP 16; O2SAT 96
[2023-12-19 09:45] VITALS: BP 86/59; PULSE 69; RESP 16; O2SAT 95
[2023-12-19 09:50] VITALS: BP 110/74; PULSE 63; RESP 16; TEMP 36.3; O2SAT 95
== END 2023-12-19 10:18 | disposition home or self-care (01) ==
LOC: EN 07:33 → AC 07:34
PROVIDERS: PCP Nurse Practitioner Family; Referring Provider Nurse Practitioner Family; Visit Provider Surgery
PROC: 0DJD8ZZ Inspection of Lower Intestinal Tract, Via Natural or Artificial Opening Endoscopic (ICD-10-PCS; CPT 45378; principal; 2023-12-19 08:25)
DX: Z12.11 Encounter for screening for malignant neoplasm of colon (principal); I10 Essential (primary) hypertension; R19.5 Other fecal abnormalities; Z79.82 Long term (current) use of aspirin; Z79.899 Other long term (current) drug therapy; Z80.0 Family history of malignant neoplasm of digestive organs; Z85.46 Personal history of malignant neoplasm of prostate
CPT/HCPCS: 45378; J7120; J2405

== ENCOUNTER → 2025-05-31 | Outpatient (CLI) | payer SELFPAY ==
[2025-05-31 15:23] LABS: Hematocrit 48.1 % (40-54); Hemoglobin 16.0 g/dL (13.0-16.5); Immature Granulocytes Count 0.050 X10^3/uL (0.0-0.0); Mean Corp Hgb Conc 33.3 g/dL (32-36); Mean Corpuscular Volume 89.6 fL (80-94); Mean Platelet Vol. 9.9 fl (6.2-12.0); NRBC Flagged by Analyzer 0 % (0-5); Platelet Count 291 K/mm3 (150-450); RBC Distribution Width CV 12.7 % (11.6-14.6); RBC Distribution Width SD 41.3 fl (35.1-43.9); Red Blood Count 5.37 M/mm3 (4.6-6.2); White Blood Count 7.2 K/mm3 (4.4-11.0)
[2025-05-31 18:54] LABS: AST(SGOT) 29 U/L (<=37); Alanine Aminotransfer ALT/SGPT 39 U/L (<=46); Albumin, Serum 4.4 g/dL (3.4-4.8); Alkaline Phosphatase 71 U/L (40-129); Anion Gap 11 (5-15); BUN 17 mg/dL (4-19); BUN/Creat Ratio 17.7 RATIO (10-20); Calcium,Total 9.5 mg/dL (7.6-11.0); Carbon Dioxide 25.8 mmol/L (21.0-32.0); Chloride 103 mmol/L (98-108); Cholesterol 198 mg/dL (<=200); Globulin 3.0 g/dL (2.2-4.2); Glucose 97 mg/dL (70-99); Low Density Lipoprotein Calc. 139 mg/dL; Potassium 4.2 mmol/L (3.3-5.1); Triglycerides 119 mg/dL; Very Low Density Lipoprotein 24 mg/dL (5-40); cholesterol:hdl ratio screen 5.64
[2025-05-31 18:57] LABS: PSA,Total - Annual Screen < 0.02 ng/mL (0.02-4.00)
== END | disposition home or self-care (01) ==
LOC: BFHLAB 11:32
PROVIDERS: PCP Nurse Practitioner Family; Visit Provider Nurse Practitioner Family
DX: Z00.01 Encounter for general adult medical examination with abnormal findings (principal); Z12.5 Encounter for screening for malignant neoplasm of prostate
CPT/HCPCS: 36415; 80053; 80061; 84153; 85025; G0103